=== PATIENT | female | born 1970 | race Two or more races ===

== ENCOUNTER 2021-05-11 05:44 | Emergency (ER) | payer OTHER ==
[~2021-05-11] VITALS: Ht 172.7 cm; Wt 108.4 kg
[2021-05-11] MEDS ORDERED: ASPirin 81 mg TAB PO ONE (06:45)
[2021-05-11 06:52] LABS: Basophils # (auto) 0.1 10 ^3/uL (0-0.2); Basophils % (auto) 1.2 % (0.0-2.0); Eosinophils # (auto) 0.1 10 ^3/uL (0-0.8); Eosinophils % (auto) 1.9 % (0.0-7.0); Hematocrit 40.3 % (36.0-46.0); Hemoglobin 13.9 g/dL (12.2-16.2); Lymphocytes # (auto) 1.4 10 ^3/uL (0.4-5.4); Mean Corpuscular Hemoglobin 30.3 pg (28.0-32.0); Mean Corpuscular Hgb Conc. 34.4 g/dL (32.0-36.0); Mean Corpuscular Volume 88.2 fL (80.0-100.0); Monocytes # (auto) 0.5 10 ^3/uL (0-1.3); Monocytes % (auto) 8.2 % (0.0-12.0); Neutrophils # (auto) 3.7 10 ^3/uL (1.6-8.6); Neutrophils % (auto) 63.7 % (37.0-80.0); Red Blood Cells 4.57 10^6/uL (4.0-5.20); Red Cell Distribution Width 13.7 % (11.8-14.3); White Blood Cell 5.7 10^3/uL (4.4-10.8)
[2021-05-11 07:10] LABS: Calcium 8.6 mg/dL (8.5-10.1); Chloride 106 mmol/L (98-107); Sodium 136 mmol/L (136-145)
[2021-05-11 07:14] LABS: Alanine Aminotransferase 29 U/L (13-56); Albumin 3.3 g/dL (3.4-5.0); Anion Gap 7 (5-15); BUN/Creatinine Ratio 23.3; Blood Urea Nitrogen 14 mg/dL (7-18); Carbon Dioxide 23 mmol/L (21-32); GFR African American 137 mL/min; GFR Non-African American 113 mL/min; Glucose 226 mg/dL (74-106)
[2021-05-11 07:21] LABS: Alkaline Phosphatase 61 U/L (45-117); Aspartate Aminotransferase 8 U/L (15-37); Bilirubin, Total 0.4 mg/dL (0.2-1.0); Total Protein 6.6 g/dL (6.4-8.2)
[2021-05-11 07:44] LABS: Urine Bacteria FEW /hpf (None Seen); Urine Blood Negative /uL (Negative); Urine Mucus FEW (None Seen); Urine Specific Gravity 1.013 (1.001-1.035); Urine WBC <1 /hpf (0 - 5)
[2021-05-11 07:45] VITALS: BP 124/74
[2021-05-11] MEDS ORDERED: SODIUM CHLORIDE 0.9% 1,000 ML IV ONE (08:00)
[2021-05-11] MEDS ORDERED: IBUPROFEN 600 MG TAB PO ONE (08:00)
== END 2021-05-11 09:47 | disposition home or self-care (01) ==
LOC: ER 05:44
DX: R07.89 Other chest pain (principal); E11.65 Type 2 diabetes mellitus with hyperglycemia; E46 Unspecified protein-calorie malnutrition; E11.9 Type 2 diabetes mellitus without complications; F17.210 Nicotine dependence, cigarettes, uncomplicated; Z88.6 Allergy status to analgesic agent; Z88.8 Allergy status to other drugs, medicaments and biological substances
CPT/HCPCS: 36415; 71045; 80053; 81001; 83880; 84484; 85025; 85049; 93005; 96360; 99285; J7030

== ENCOUNTER 2022-04-22 23:38 | Emergency (ER) | payer OTHER ==
[~2022-04-22] VITALS: Ht 170.2 cm; Wt 108.9 kg
[2022-04-22 23:40] VITALS: BP 145/56
[2022-04-22] MEDS ORDERED: ALBUTEROL SULF 2.5 MG/0.5ML(0.5%) NEB SOLN NEB ONE (23:45)
[2022-04-22] MEDS ORDERED: IPRATROPIUM BROM 0.5 MG/2.5ML INH SOL NEB ONE (23:45)
== END 2022-04-23 03:00 | disposition left against medical advice (07) ==
LOC: ER 23:38
DX: R06.02 Shortness of breath (principal); J45.909 Unspecified asthma, uncomplicated; Z53.21 Procedure and treatment not carried out due to patient leaving prior to being seen by health care provider
CPT/HCPCS: 94640; J7644